=== PATIENT | male | born 1955 | race Caucasian/White ===

== ENCOUNTER 2017-09-09 01:35 | Emergency (ER) | payer OTHER ==
[~2017-09-09] VITALS: Ht 182.9 cm; Wt 112.0 kg
[2017-09-09 01:35] VITALS: BP_SYST 138
[2017-09-09] MEDS ORDERED: BACL10TA PO (01:52)
[2017-09-09] MEDS ORDERED: GABA-531 PO (01:52)
[2017-09-09] MEDS ORDERED: IBUP-1969 PO (01:52)
[2017-09-09] MEDS ORDERED: HYDR-1189 PO (01:52)
[2017-09-09] MEDS ORDERED: IBUP-1480 PO (01:52)
[2017-09-09] MEDS ORDERED: LOSA25TA3 PO (01:52)
[2017-09-09] MEDS ORDERED: ASPIRIN 81 MG TAB.CHEW PO ONE (02:00)
[2017-09-09] MEDS ORDERED: NITROGLYCERIN 1 INCH (GM) OINT. TD ONE (02:00)
[2017-09-09] MEDS ORDERED: MORPHINE 4 MG/ML INJ. SYRINGE IVP ONE (02:00)
[2017-09-09 02:18] LABS: BASOPHILS # (AUTO) 0.1 K/uL (0.0-0.2); BASOPHILS % (AUTO) 0.7 % (0.0-2.0); EOSINOPHILS # (AUTO) 0.2 K/uL (0.0-0.4); EOSINOPHILS % (AUTO) 2.3 % (0.0-4.0); HEMATOCRIT 45.3 % (36-54); HEMOGLOBIN 15.3 g/dL (14.0-18.0); LYMPHOCYTES # (AUTO) 3.1 K/uL (1.0-5.5); LYMPHOCYTES % (AUTO) 35.1 % (20.5-51.5); MEAN CORPUSCULAR HEMOGLOBIN 29 pg (27-31); MEAN CORPUSCULAR HGB CONC 34 % (32-36); MEAN CORPUSCULAR VOLUME 86 fL (79.0-98.0); MONOCYTES # (AUTO) 0.5 K/uL (0.0-1.0); MONOCYTES % (AUTO) 5.7 % (1.7-9.3); NEUTROPHILS # (AUTO) 5.1 K/uL (1.8-7.7); NEUTROPHILS % (AUTO) 56.2 % (40.0-70.0); PLATELET COUNT (AUTO) 204 K/uL (130-430); RED BLOOD CELL COUNT(AUTO) 5.26 MIL/uL (4.2-6.2); RED CELL DISTRIBUTION WIDTH 12.8 % (9.0-15.0)
[2017-09-09 02:27] LABS: CALCIUM 9.3 mg/dL (8.4-11.0); CREATININE 1.13 mg/dL (0.55-1.30); POTASSIUM 3.8 mmol/L (3.5-5.1)
[2017-09-09 02:31] LABS: INR 1.1 (0.80-1.20); PROTHROMBIN TIME 10.8 SECS (9.5-12.5)
[2017-09-09 02:35] LABS: ALBUMIN 3.7 g/dL (3.4-4.8); TOTAL BILIRUBIN 0.7 mg/dL (0.0-1.0)
[2017-09-09 03:30] VITALS: BP_SYST 128
== END 2017-09-09 03:30 | disposition home or self-care (01) ==
LOC: SED 01:35
DX: K70.9 Alcoholic liver disease, unspecified (principal); Z98.890 Other specified postprocedural states; Z79.899 Other long term (current) drug therapy
CPT/HCPCS: 36415; 71010; 80053; 80061; 82550-TC; 83880; 84484; 85025; 85379; 85610-TC; 85730-TC; 93005; 99285